=== PATIENT | female | born 1990 | race American Indian/Alaskan Native ===

== ENCOUNTER 2019-07-23 13:04 | Emergency (ER) | payer MEDICAID ==
[2019-07-23] MEDS ORDERED: ACETAMINOPHEN 325 MG TAB PO ONE (14:35)
--- NOTE | 2019-07-23 14:37 | Emergency Department Report ---
Chief Complaint: Vaginal Bleeding Stated Complaint: POSS /STOMACH PAIN - HPI History of Present Illness: 29 y/o fem, , not sure of lmp, follows with [facility] or [facility] p/w lower abd cramping and vaginal bleeding no urinary symptoms belly soft benign exam labs ua, ultrasound ok to go to [facility] MSE screening note: Focused history and physical exam performed. Due to findings the following was ordered: ED Disposition for MSE Condition: Stable
[2019-07-23 14:38] VITALS: BP 111/48
--- NOTE | 2019-07-23 15:49 | Ultrasound Report ---
ULTRASOUND OBSTETRIC INDICATION: Vaginal bleeding. Estimated clinical gestational age of 4 weeks, 6 days. TECHNIQUE: Transabdominal and Transvaginal. COMPARISON: None available. FINDINGS: GESTATIONAL SAC: Not visualized. YOLK SAC: Not visualized. EMBRYO/FETUS: Not visualized. ADNEXA: No ectopic or other significant abnormality. FREE FLUID: None. ADDITIONAL FINDINGS: None. IMPRESSION: No sonographic evidence of an intrauterine or ectopic . Signer Name: Salvador Mcdaniel MD Signed: 07/23/2019 3:44 PM Workstation Name: [id number]
[2019-07-23 15:52] LABS: Basophils % (Auto) 0.8 % (0.0-1.8); Eosinophils # (Auto) 0.1 K/mm3 (0.0-0.4); Eosinophils % (Auto) 1.2 % (0.0-4.3); Hematocrit 37.7 % (30.3-42.9); Hemoglobin 12.6 gm/dl (10.1-14.3); Lymphocytes # (Auto) 2.2 K/mm3 (1.2-5.4); Lymphocytes % (Auto) 46.1 % (13.4-35.0); Mean Corpuscular HGB Conc 33 % (30-34); Mean Corpuscular Volume 87 fl (79-97); Monocytes # (Auto) 0.3 K/mm3 (0.0-0.8); Platelet Count 236 K/mm3 (140-440); Red Blood Count 4.32 M/mm3 (3.65-5.03); Red Cell Distribution Width 13.8 % (13.2-15.2)
[2019-07-23 15:58] LABS: Bilirubin,Urine NEG (Negative); Blood,Urine NEG (Negative); Color,Urine Straw (Yellow); Protein,Urine <15 mg/dL mg/dL (Negative); Urobilinogen,Urine < 2.0 mg/dL (<2.0)
== END 2019-07-23 22:02 | disposition left against medical advice (07) ==
LOC: ED 13:04
DX: R10.9 Unspecified abdominal pain (principal); Z53.21 Procedure and treatment not carried out due to patient leaving prior to being seen by health care provider
CPT/HCPCS: 36415; 76801; 76817; 81001; 84702; 85025; 86850; 86900; 86901

== ENCOUNTER 2019-09-12 00:05 | Emergency (ER) | payer MEDICAID ==
[2019-09-12 01:56] LABS: Bacteria,Urine 1+ /HPF (Negative); Bilirubin,Urine NEG (Negative); Blood,Urine NEG (Negative); Color,Urine Yellow (Yellow); Protein,Urine <15 mg/dL mg/dL (Negative); Urobilinogen,Urine < 2.0 mg/dL (<2.0)
[2019-09-12 02:00] LABS: HCG Qualitative,Urine Negative (Negative)
[2019-09-12 04:15] VITALS: BP 105/60
== END 2019-09-12 04:16 | disposition home or self-care (01) ==
LOC: ED 00:05
DX: R31.9 Hematuria, unspecified (principal); R30.0 Dysuria; R07.89 Other chest pain
CPT/HCPCS: 81001; 81025; 99283

== ENCOUNTER 2019-11-24 11:39 | Emergency (ER) | payer MEDICAID ==
[2019-11-24 12:26] LABS: Basophils % (Auto) 0.5 % (0.0-1.8); Eosinophils # (Auto) 0.1 K/mm3 (0.0-0.4); Eosinophils % (Auto) 0.9 % (0.0-4.3); Hematocrit 36.4 % (30.3-42.9); Hemoglobin 12.2 gm/dl (10.1-14.3); Lymphocytes # (Auto) 1.3 K/mm3 (1.2-5.4); Mean Corpuscular HGB Conc 34 % (30-34); Mean Corpuscular Volume 87 fl (79-97); Monocytes # (Auto) 0.4 K/mm3 (0.0-0.8); Monocytes % (Auto) 6.2 % (0.0-7.3); Platelet Count 244 K/mm3 (140-440); Red Blood Count 4.21 M/mm3 (3.65-5.03); Red Cell Distribution Width 12.8 % (13.2-15.2)
[2019-11-24] MEDS ORDERED: SODIUM CHLORIDE 0.9% 1000 ML 1,000 ML IV ONE (12:30)
[2019-11-24 13:04] LABS: BUN/Creatinine Ratio 10; Blood Urea Nitrogen 7 mg/dL (7-17); Calcium 9.5 mg/dL (8.4-10.2); Hemolysis Index 4
[2019-11-24 13:13] LABS: Bilirubin,Urine NEG (Negative); Blood,Urine SM (Negative); Color,Urine Yellow (Yellow); Mucus,Urine FEW /HPF; Protein,Urine <15 mg/dL mg/dL (Negative)
--- NOTE | 2019-11-24 13:53 | Emergency Department Report ---
ED Female HPI - General Chief complaint: Urogenital-Female Stated complaint: DIZZY Time Seen by Provider: 11/24/19 12:28 Source: patient Mode of arrival: Ambulatory Limitations: No Limitations - History of Present Illness Initial comments: 29-year-old -Monegasque female G8, presents to the emergency department complaining of 1 to 2-day history of brown vaginal discharge development while being 8 weeks . States she has mild weakness with some nausea but no significant pain. No dysuria, no fever, chills, sweats no palpitations no abdominal trauma. MD Complaint: vaginal discharge Location: suprapubic Severity: mild, moderate Quality: dull Consistency: constant Improves with: none Worsens with: none Are you Now?: Yes Associated Symptoms: vaginal discharge - Related Data Sexually active: Yes Previous Rx's Medication Instructions Recorded Last Taken Type Brompheniram/Phenylephrine/Dm 10 ml PO Q6HR #240 solution 09/12/19 Unknown Rx [Children's Cold-Cough Elixir] Ciprofloxacin HCl [Ciprofloxacin 500 mg PO Q12HR #10 tab 09/12/19 Unknown Rx TAB] metroNIDAZOLE [Flagyl] 500 mg PO Q12HR #14 tab 11/24/19 Unknown Rx Allergies Allergy/AdvReac Type Severity Reaction Status Date / Time amoxicillin Allergy Shortness Verified 11/24/19 11:43 of Breath Penicillins Allergy Shortness Verified 11/24/19 11:43 of Breath ED Review of Systems ROS: Stated complaint: DIZZY Other details as noted in HPI Comment: All other systems reviewed and negative ED Past Medical Hx - Past Medical History Previous Medical History?: No - Surgical History Past Surgical History?: Yes Additional Surgical History: TONSILS - Social History Smoking Status: Never Smoker Substance Use Type: None - Medications Home Medications: Home Medications Medication Instructions Recorded Confirmed Last Taken Type Brompheniram/Phenylephrine/Dm 10 ml PO Q6HR #240 solution 09/12/19 Unknown Rx [Children's Cold-Cough Elixir] Ciprofloxacin HCl [Ciprofloxacin 500 mg PO Q12HR #10 tab 09/12/19 Unknown Rx TAB] metroNIDAZOLE [Flagyl] 500 mg PO Q12HR #14 tab 11/24/19 Unknown Rx ED Physical Exam - General Limitations: No Limitations General appearance: alert, in no apparent distress - Head Head exam: Present: atraumatic, normocephalic - Eye Eye exam: Present: normal appearance, PERRL, EOMI Pupils: Present: normal accommodation - ENT ENT exam: Present: normal exam, mucous membranes moist - Neck Neck exam: Present: normal inspection - Respiratory Respiratory exam: Present: normal lung sounds bilaterally. Absent: respiratory distress - Cardiovascular Cardiovascular Exam: Present: regular rate, normal rhythm. Absent: systolic murmur, diastolic murmur, rubs, gallop - GI/Abdominal GI/Abdominal exam: Present: soft, normal bowel sounds - External exam: Present: normal external exam Speculum exam: Present: vaginal discharge Bi-manual exam: Present: normal bi-manual exam, other (Nurse currency counter present) - Extremities Exam Extremities exam: Present: normal inspection - Back Exam Back exam: Present: normal inspection - Neurological Exam Neurological exam: Present: alert, oriented X3 - Psychiatric Psychiatric exam: Present: normal affect, normal mood - Skin Skin exam: Present: warm, dry, intact, normal color. Absent: rash ED Course Vital Signs 11/24/19 11/24/19 11/24/19 11:49 17:48 18:00 Temperature 98.2 F Pulse Rate 78 71 Respiratory 17 18 16 Rate Blood Pressure 101/67 Blood Pressure 81/45 [Right] O2 Sat by Pulse 100 100 Oximetry 11/24/19 11/24/19 19:11 20:09 Temperature Pulse Rate 71 79 Respiratory 16 Rate Blood Pressure Blood Pressure 89/57 98/66 [Right] O2 Sat by Pulse 100 Oximetry ED Medical Decision Making - Lab Data Result diagrams: 11/24/19 12:15 11/24/19 12:15 Critical care attestation.: If time is entered above; I have spent that time in minutes in the direct care of this critically ill patient, excluding procedure time. ED Disposition Clinical Impression: Bacterial vaginal infection Disposition: DC-01 TO HOME OR SELFCARE Is pt being admited?: No Does the pt Need Aspirin: No Condition: Stable Instructions: Bacterial Vaginosis (ED) Prescriptions: metroNIDAZOLE [Flagyl] 500 mg PO Q12HR #14 tab Referrals: PRIMARY CARE, [Primary Care Provider] - 3-5 Days Forms: STI Treatment and Prevention
--- NOTE | 2019-11-24 17:09 | Ultrasound Report ---
OB ultrasound FINDINGS: Single fetus is identified with heart rate of 178 bpm. Appropriate measurements revea l an MA of 12 weeks 2 days for an EDC of 06/05/2020. This correlates with the clinical dates. Left ov nilson is normal. Right ovary contains an 11 x 8 x 8 mm cyst probably a corpus luteum cyst. There is no free fluid or subchorionic hemorrhage. Placenta is posterior. No abnormality seen. Signer Name: Carlyle Ha MD Signed: 11/24/2019 5:05 PM Workstation Name: [id number]
[2019-11-24] MEDS: SODIUM CHLORIDE 0.9% 1000 ML 1,000 ML IV SCH ×2 (17:59→18:00)
[2019-11-24 20:09] VITALS: BP 98/66
== END 2019-11-24 20:09 | disposition home or self-care (01) ==
LOC: ED 11:39
DX: O26.891 Other specified pregnancy related conditions, first trimester (principal); N89.8 Other specified noninflammatory disorders of vagina; R11.0 Nausea; Z3A.08 8 weeks gestation of pregnancy; Z98.890 Other specified postprocedural states; Z79.899 Other long term (current) drug therapy; Z88.0 Allergy status to penicillin; Z88.1 Allergy status to other antibiotic agents
CPT/HCPCS: 36415; 76801; 80048; 81001; 84702; 85025; 86900; 86901; 87210; 87591; 99284; J7030

== ENCOUNTER 2020-05-01 21:01 | Observation (INO) | payer MEDICAID ==
[2020-05-01] MEDS ORDERED: LACTATED RINGERS 1,000 ML IV ONE (21:51)
[2020-05-01 22:37] LABS: Bacteria,Urine 1+ /HPF (Negative); Bilirubin,Urine NEG (Negative); Blood,Urine NEG (Negative); Color,Urine Straw (Yellow); Protein,Urine <15 mg/dL mg/dL (Negative); Urobilinogen,Urine < 2.0 mg/dL (<2.0); WBC,Urine < 1.0 /HPF (0.0-6.0)
[2020-05-01 22:41] LABS: Amphetamine Screen,Urine PRESUMPTIVE NEGATIVE; Benzodiazepines Screen,Urine PRESUMPTIVE NEGATIVE; Cannabinoid Screen,Urine PRESUMPTIVE NEGATIVE; Cocaine Screen,Urine PRESUMPTIVE NEGATIVE; Methadone Screen,Urine PRESUMPTIVE NEGATIVE; Opiate Screen,Urine PRESUMPTIVE NEGATIVE
[2020-05-01] MEDS ORDERED: MORPHINE 4 MG/1 ML INJ IM ONE (23:10)
[2020-05-01] MEDS ORDERED: diphenhydrAMINE 50 MG/ML VIAL IV ONE (23:10)
[2020-05-01] MEDS ORDERED: LACTATED RINGERS 1,000 ML IV SCH (23:45)
[2020-05-01 23:55] LABS: Basophils % (Auto) 0.3 % (0.0-1.8); Eosinophils # (Auto) 0.1 K/mm3 (0.0-0.4); Eosinophils % (Auto) 0.7 % (0.0-4.3); Hematocrit 33.6 % (30.3-42.9); Hemoglobin 11.4 gm/dl (10.1-14.3); Lymphocytes # (Auto) 1.6 K/mm3 (1.2-5.4); Lymphocytes % (Auto) 18.9 % (13.4-35.0); Mean Corpuscular HGB Conc 34 % (30-34); Mean Corpuscular Volume 90 fl (79-97); Monocytes # (Auto) 0.7 K/mm3 (0.0-0.8); Monocytes % (Auto) 8.4 % (0.0-7.3); Platelet Count 204 K/mm3 (140-440); Red Blood Count 3.73 M/mm3 (3.65-5.03); Red Cell Distribution Width 13.5 % (13.2-15.2)
[2020-05-02] MEDS: BETAMET ACET/BETAMET NA PH 6 MG/ML INJ 5 ML MDV IM SCH
[2020-05-02] MEDS ORDERED: MORPHINE 4 MG/1 ML INJ IM ONE (02:40)
--- NOTE | 2020-05-02 02:47 | Ultrasound Report ---
ULTRASOUND OBSTETRIC LIMITED INDICATION / CLINICAL INFORMATION: VAGINAL BLEEDING. Clinical Gestational Age (GA) in weeks, days: 34 weeks 4 days TECHNIQUE: Transabdominal. COMPARISON: None available. FINDINGS: HEART RATE (beats per minute): 143 AMNIOTIC FLUID INDEX (cm) = not measured (normal = 7-24 cm) PRESENTATION: Cephalic. ADDITIONAL FINDINGS: Placenta is located within the fundus, grade 0.No placental abruption identified . Incidental note is made of a placental cantu. IMPRESSION: 1. Single viable IUP in a cephalic presentation. 2. No evidence of abruption. Signer Name: Mariama Nassar MD Signed: 05/02/2020 2:42 AM Workstation Name: [id number]
--- NOTE | 2020-05-02 13:36 | History and Physical Report ---
History of Present Illness Date of examination: 05/02/20 Date of admission: 05/01/20 23:10 Chief complaint: contractions History of present illness: 30 yo at 34w3d by reported benign PNC at [facility] c/b grand multiparity, hx PTB x 3 (at 34, 35, 36 weeks), hx PIH in previous pregnancies presenting with pelvic pain/contractions x 2 days. Hx of vaginal spotting after cervical check, but not spontaneously. Also reports persistent contractions every 3-5 minutes. +FH. Denies further vaginal bleeding or LOF. Denies PIH symptoms. GBS unknown Still obtaining records Past History Past Medical History: asthma, other (bronchitis) Past Surgical History: tonsillectomy Family/Genetic History: none Social history: no significant social history - Obstetrical History : 8 Para: 6 Hx # Term Pregnancies: 2 Number of Pregnancies: 3 Spontaneous Abortions: 2 Number of Living Children: 5 Medications and Allergies Allergies Allergy/AdvReac Type Severity Reaction Status Date / Time amoxicillin Allergy Shortness Verified 11/24/19 11:43 of Breath Penicillins Allergy Shortness Verified 11/24/19 11:43 of Breath Home Medications Medication Instructions Recorded Confirmed Last Taken Type Brompheniram/Phenylephrine/Dm 10 ml PO Q6HR #240 solution 09/12/19 Unknown Rx [Children's Cold-Cough Elixir] Ciprofloxacin HCl [Ciprofloxacin 500 mg PO Q12HR #10 tab 09/12/19 Unknown Rx TAB] metroNIDAZOLE [Flagyl] 500 mg PO Q12HR #14 tab 11/24/19 Unknown Rx Active Meds: Active Medications Betamethasone Acet/Betameth SodPhos (Celestone Soluspan) 12 mg IM Q24H JOSEF Stop: 05/02/20 23:31 Last Admin: 05/02/20 00:00 Dose: 12 mg Documented by: Lactated Ringer's (Lactated Ringers) 1,000 mls @ 125 mls/hr IV DIRECT JOSEF Review of Systems All systems: negative (expect HPI) - Vital Signs Vital signs: Vital Signs Pulse BP 90 95/65 05/01/20 21:32 05/01/20 21:32 Temp Pulse Resp BP Pulse Ox 97.7 F 90 20 105/65 99 05/02/20 08:00 05/02/20 13:11 05/02/20 08:00 05/02/20 09:15 05/02/20 13:11 - Obstetrical FHR: category 1 Uterine Contraction Monitor Mode: External Cervical Dilatation: 1 Cervical Effacement Percentage: 40 station: -2 Uterine Contraction Pattern: Irregular Uterine Tone Measurement Phase: Resting Uterine Contraction Intensity: Moderate Results Result Diagrams: 05/01/20 23:00 Abnormal lab results 05/01/20 Range/Units 23:00 [place] % (Auto) 8.4 H (0.0-7.3) % Seg Neutrophils % 71.7 H (40.0-70.0) % All other labs normal. Assessment and Plan - Patient Problems (1) contractions Current Visit: Yes Status: Acute Plan to address problem: --Given hx of delivery x 3 and high risk of delivery, will admit for atleast 24H. At least for 2 doses of steriods for lung maturity. --Nifedipine 10mg q6hr for contractions --Mag started --IV Abx --BMS x 2. Anticipate discharge after 2nd dose of steriods if no further indication for admission
[2020-05-02] MEDS ORDERED: MAGNESIUM SULFATE 4 GM/100 ML BAG IV ONE (13:41)
[2020-05-02] MEDS ORDERED: MAGNESIUM SULFATE 40GM/1000ML 40 GM/1,000 ML BAG IV SCH (14:00)
[2020-05-02] MEDS: NIFEdipine*For Tocolysis only* 10 MG CAPSULE PO SCH ×2 (16:53→23:13)
[2020-05-03] MEDS: BETAMET ACET/BETAMET NA PH 6 MG/ML INJ 5 ML MDV IM SCH (00:08)
[2020-05-03] MEDS ORDERED: ACETAMINOPHEN 325 MG TAB PO PRN (02:05)
[2020-05-03] MEDS: NIFEdipine*For Tocolysis only* 10 MG CAPSULE PO SCH (05:11)
--- NOTE | 2020-05-03 06:58 | Event Note ---
Date: 05/03/20 contractions have resolved. Procardia helped. Pt got second steroid dose last night. FHT- reactive, good LTV. D/c home with procardia.
[2020-05-03 09:17] VITALS: BP 92/61
== END 2020-05-03 09:31 | disposition home or self-care (01) ==
LOC: TRG 21:01 → APU 21:02 → LD 23:10 → TRG 23:10 → LD 05-02 03:00
PROVIDERS: ADMIT Obstetrics & Gynecology; ATTEND Obstetrics & Gynecology
DX: O62.9 Abnormality of forces of labor, unspecified (principal); O26.893 Other specified pregnancy related conditions, third trimester; J45.909 Unspecified asthma, uncomplicated; Z3A.34 34 weeks gestation of pregnancy; Z90.49 Acquired absence of other specified parts of digestive tract; Z79.899 Other long term (current) drug therapy
CPT/HCPCS: 36415; 59025; 76815; 80307; 81001; 83735; 85025; 86592; 86850; 86900; 86901; 96361; 96365; 96366; 96368; 96372; 96375; G0378; J0690; J0702; J1200; J2270; J3475; J7120; 96360

== ENCOUNTER 2020-06-02 21:12 | Inpatient (IN) | payer MEDICAID ==
--- NOTE | 2020-06-03 00:56 | Ultrasound Report ---
LIMITED OBSTETRIC ULTRASOUND WITH BIOPHYSICAL PROFILE HISTORY: well-being COMPARISON: Obstetric ultrasound 05/02/2020 TECHNIQUE: Obstetric sonogram performed for biophysical profile assessment. FINDINGS: Gestation: Single intrauterine Presentation: Currentlycephalic Amniotic Fluid Index: 6.9 cm ANATOMY: Detailed anatomic survey was not requested. heart rate is 135 beats per minute. BIOPHYSICAL PROFILE: Movement: 2 Tone: 2 Breathin Amniotic Fluid: 2 Total: 8 out of 8 IMPRESSION 1. Biophysical Profile 8/8. 2. Amniotic fluid index 6.9 cm. Signer Name: Fabiana Kaplan MD Signed: 06/03/2020 12:52 AM Workstation Name: [id number]
[2020-06-03] MEDS ORDERED: MINERAL OIL 30 ML ORAL LIQD PO PRN (01:24)
[2020-06-03] MEDS ORDERED: fentaNYL 100 MCG/2 ML INJ IV PRN (01:24)
[2020-06-03] MEDS ORDERED: BUTORPHANOL 2 MG/1 ML INJ IV PRN ×2 (01:24)
[2020-06-03] MEDS ORDERED: LIDOCAINE (2%) 20 MG/1 ML VIAL 20 ML MDV INFILTRATI ONE ×2 (01:24→03:57)
[2020-06-03] MEDS ORDERED: TERBUTALINE 1 MG/1 ML INJ SUB-Q PRN (01:24)
[2020-06-03] MEDS ORDERED: ePHEDrine SULFATE 50 MG/1 ML INJ IV PRN (01:24)
[2020-06-03] MEDS ORDERED: LACTATED RINGERS 1,000 ML IV SCH (01:30)
[2020-06-03] MEDS ORDERED: CLINDAMYCIN 600 MG/50 mL 600 MG/50 ML BAG IV SCH (02:00)
[2020-06-03] MEDS ORDERED: OXYTOCIN DRIP 30 UNITS/500 ML BAG IV SCH ×2 (02:00)
--- NOTE | 2020-06-03 02:14 | History and Physical Report ---
History of Present Illness Date of examination: 06/03/20 Date of admission: 06/03/20 Chief complaint: 30 y/o presents to [facility] OB triage with c/o uc times several hours. She denies VB or LOF, and admits to active FM. History of present illness: 30 y/o AA female presents to [facility] @ 39.1 wks with c/o uc x several hours. She denied VB or LOF. She states she initiated her pnc at [facility] location at 8wks 5 days. Pt was co managed by [facility] for a hx of PTD and an abn MSAFP for ONTD. Pt has a hx of pp depression (2011), asthma last attack was 09/10, PTD x3, LSIL with neg HPV on pap. Surgical and social hx is unremarkable. Family hx of DM, heart disease, and Ca. Pt's GBS is unknown. She was found to be in labor and was admitted to L&D for delivery. 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, other (LSIL with neg HPV) Family/Genetic History: diabetes, heart disease, cancer Social history: single, full code - Obstetrical History Expected Date of Delivery: 06/09/20 Actual Gestation: 39 Week(s) 1 Day(s) : 8 Para: 5 Hx # Term Pregnancies: 2 Number of Pregnancies: 3 Spontaneous Abortions: 0 Induced : 0 Number of Living Children: 5 Medications and Allergies Allergies Allergy/AdvReac Type Severity Reaction Status Date / Time amoxicillin Allergy Shortness Verified 11/24/19 11:43 of Breath Penicillins Allergy Shortness Verified 11/24/19 11:43 of Breath Home Medications Medication Instructions Recorded Confirmed Last Taken Type Colace CAP 1 tab PO DAILY 05/03/20 05/03/20 05/01/20 History Iron 1 tab PO BID 05/03/20 05/03/20 05/01/20 History NIFEdipine [Procardia] 10 mg PO Q6H PRN #30 capsule 05/03/20 Unknown Rx Vitamin 1 tab PO DAILY 05/03/20 05/03/20 05/01/20 History Active Meds: Active Medications Butorphanol Tartrate (Butorphanol 2 Mg/1 Ml Inj) 1 mg IV Q2H PRN PRN Reason: Pain, Moderate(4-6) LABOR PAIN Butorphanol Tartrate (Butorphanol 2 Mg/1 Ml Inj) 2 mg IV Q2H PRN PRN Reason: Pain , Severe (7-10) Last Admin: 06/03/20 01:57 Dose: 2 mg Documented by: Ephedrine Sulfate (Ephedrine Sulfate 50 Mg/1 Ml Inj) 10 mg IV Q2M PRN PRN Reason: Hypotension Fentanyl (Fentanyl 100 Mcg/2 Ml Inj) 100 mcg IV Q2H PRN PRN Reason: Pain,Severe (7-10) LABOR PAIN Oxytocin/Sodium Chloride (Pitocin/Ns 30 Unit/500ml) 30 units in 500 mls @ 2 mls/hr IV TITR JOSEF; Protocol Lactated Ringer's (Lactated Ringers) 1,000 mls @ 125 mls/hr IV DIRECT JOSEF Last Admin: 06/03/20 01:58 Dose: 125 mls/hr Documented by: Oxytocin/Sodium Chloride (Pitocin/Ns 30 Unit/500ml) 30 units in 500 mls @ 40 mls/hr IV TITR JOSEF; Protocol Clindamycin HCl (Cleocin 600 Mg/50 Ml) 600 mg in 50 mls @ 100 mls/hr IV Q8HR JOSEF; Protocol Mineral Oil (Mineral Oil 30 Ml Oral Liqd) 30 ml PO QHS PRN PRN Reason: Constipation Miscellaneous Medication (Iron) 1 tab PO BID [facility] Multivitamins/Iron/Calcium ( Xtm86-In Fumarate-Folic Acid Vit Tab) 1 each PO DAILY [facility] Terbutaline Sulfate (Terbutaline 1 Mg/1 Ml Inj) 0.25 mg SUB-Q ONCE PRN PRN Reason: Hyperstimulation/Hypertonicity Review of Systems All systems: negative Eyes: deferred Ears, nose, mouth and throat: deferred Breasts: normal Genitourinary: normal appearance, contractions Rectal Exam: deferred - Vital Signs Vital signs: Vital Signs Pulse BP Pulse Ox 90 118/73 100 06/02/20 21:44 06/02/20 21:44 06/02/20 21:44 Temp Pulse Resp BP Pulse Ox 98.3 F 81 18 118/73 98 06/02/20 21:49 06/02/20 23:29 06/02/20 21:49 06/02/20 21:49 06/02/20 23:29 - Physical Exam Breasts: Positive: normal Abdomen: Positive: normal appearance, soft, normal bowel sounds Vulva: both: normal Vagina: Positive: normal moisture Uterus: Positive: enlarged, normal contour, other (GRAVID) Adnexa: both: normal Anus/Rectum: Positive: normal perianal skin Extremities: Positive: normal - Obstetrical FHR: auscultation normal, category 1 Uterine Contraction Monitor Mode: External Cervical Dilatation: 4 Cervical Effacement Percentage: 90 station: -3 Uterine Contraction Frequency (min): Q3-5 Uterine Contraction Pattern: Regular Uterine Tone Measurement Phase: Resting Uterine Contraction Intensity: Moderate Results Result Diagrams: 06/03/20 01:25 All other labs normal. Assessment and Plan A:IUP@39.1 wks Hx PTD x3 Asthma, Hx pp depression LSIL on pap GBS unknown Abnormal MSAFP p: Admit to L&D Continuous monitoring Pain med/Epidural prn GBS prophylaxis Notify LEYDA Monitor for pp depression Anticipate - Patient Problems (1) (normal spontaneous vaginal delivery) Current Visit: Yes Status: Acute (2) Asthma Current Visit: Yes Status: Acute (3) History of depression Current Visit: Yes Status: Acute
[2020-06-03 02:36] LABS: Hematocrit 36.8 % (30.3-42.9); Mean Corpuscular HGB Conc 33 % (30-34); Mean Corpuscular Volume 92 fl (79-97); Platelet Count 201 K/mm3 (140-440); Red Blood Count 4.01 M/mm3 (3.65-5.03); Red Cell Distribution Width 13.6 % (13.2-15.2)
[2020-06-03] MEDS ORDERED: PROMETHAZINE 25 MG RECT SUPP PR PRN ×2 (02:49→03:32)
[2020-06-03] MEDS ORDERED: ONDANSETRON 4 MG/2 ML INJ IV PRN ×2 (02:49→03:32)
[2020-06-03] MEDS ORDERED: PROMETHAZINE 25 MG TAB PO PRN ×2 (02:49→03:32)
[2020-06-03] MEDS ORDERED: LANOLIN/ZINC/DIMETHICONE (LANSINOH) 7 GM TP PRN (02:49)
[2020-06-03] MEDS ORDERED: WITCH HAZEL/ GLYCERIN PAD TP PRN (02:49)
[2020-06-03] MEDS ORDERED: diphenhydrAMINE 25 MG CAP PO PRN (02:49)
[2020-06-03] MEDS ORDERED: MAGNESIUM HYDROXIDE (MOM) ORAL LIQD UDC PO PRN ×2 (02:49→03:32)
--- NOTE | 2020-06-03 03:47 | Procedure Note ---
OB Delivery Note - Delivery Date of Delivery: 06/03/20 Surgeon: BERNARD ANTHONY Multiple Drum Sander: BERNARD ANTHONY Estimated blood loss: 100cc - Vaginal Delivery presentation: vertex Delivery position: OA Delivery induction: none Delivery augmentation: pitocin Delivery monitor: external FHT, external uterine Route of delivery: Delivery placenta: spontaneous Delivery cord: nuchal cord, 3 umbilical vessels Episiotomy: none Delivery laceration: none Anesthesia: intravenous Delivery comments: Called to for delivery. SVE 10/100%/+1 and pt was pushing. of a viable female in OA position. Head delivered with ease. Tight nuchal cord X 1 was clamped x2 and cut while head was still on the perineum. Infant's shoulders were delivered spontaneously. was placed on moms chest for skin to skin bonding while LEYDA nurse stimulated and dried baby then infant was taken to the warmer for an assess. 8/9. Spontaneous delivery of an intact placenta with CVX3. FF@ U2 with fundal massage and IV Pitocin. Exploration of tears revealed none. EBL 100cc FW 6lbs 7 oz. Mom and baby stable and left in the care of the nurse. - A at 1 minute: 8 at 5 minutes: 9 (FW 6 LBS 7 OZ) Gender: Female
[2020-06-03] MEDS: IBUPROFEN 600 MG TAB PO SCH ×3 (07:12→17:36)
[2020-06-03] MEDS: FERROUS SULFATE 325 MG TAB PO SCH (09:50)
[2020-06-03] MEDS ORDERED: PRENATAL VIT27-FE FUMARATE-FOLIC ACID VIT TAB PO SCH (10:00)
[2020-06-03 20:46] LABS: Hematocrit 33.6 % (30.3-42.9); Hemoglobin 11.4 gm/dl (10.1-14.3)
[2020-06-04] MEDS: FERROUS SULFATE 325 MG TAB PO SCH ×2 (05:34→12:18)
[2020-06-04] MEDS: IBUPROFEN 600 MG TAB PO SCH ×2 (05:34→12:17)
--- NOTE | 2020-06-04 10:47 | Progress Note ---
Assessment and Plan A: day 1 S/P . P: Continue current management. Plan discharge home when baby is able to go, either this evening or tomorrow. Subjective - Subjective Date of service: 06/04/20 Principal diagnosis: day 1 S/P Patient reports: appetite normal, voiding normally, pain well controlled, flatus, ambulating normally, no dizzy ambulation, no nauseated : doing well Objective - Vital Signs Latest vital signs: Vital Signs Temp Pulse Resp BP Pulse Ox 06/04/20 08:14 98.1 F 85 20 100/69 96 06/04/20 02:19 98.0 F 89 18 98/54 96 06/03/20 17:29 99.0 F 93 H 18 97/58 96 06/03/20 12:45 98.0 F 94 H 19 102/64 97 Intake and Output 06/03/20 06/04/20 06/04/20 23:59 07:59 15:59 Intake Total 960 480 240 Output Total 600 Balance 360 480 240 Intake: Oral 600 480 240 Intake, Free Water 360 Output: Urine 600 Void 600 Other: Total, Intake Amount 240 240 240 Total, Output Amount 600 # Voids Void 1 1 - Exam Cardiovascular: Present: Regular rate Lungs: Present: Clear to auscultation Abdomen: Present: normal appearance, soft. Absent: distention, tenderness, guarding, rigidity Uterus: Present: normal, firm, fundal height below umbilicus. Absent: bogginess, tenderness Extremities: Present: normal. Absent: tenderness, edema
[2020-06-04 13:57] VITALS: BP 106/65
--- NOTE | 2020-06-04 15:23 | Event Note ---
Date: 06/04/20 Was notified by patient's nurse that patient signed out AMA.
--- NOTE | 2020-06-04 15:24 | Discharge Summary ---
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 Primary care physician: MICHAEL CASTELLANOS MD Hospitalization Disposition: DC-07 LEFT AGAINST MED ADVICE Plan - Provider Discharge Summary Additional instructions: [] Smoking cessation referral if applicable(refer to patient education folder for contact #) [] Refer to [facility]'s [facility] Booklet Call your doctor immediately for: * Fever > 100.5 * Heavy vaginal bleeding ( >1 pad per hour) * Severe persistent headache * Shortness of breath * Reddened, hot, painful area to leg or breast * Drainage or odor from incision. * Keep incision clean and dry at all times and follow doctor's instructions regarding bathing/showering - Follow up plan Follow up: MICHAEL CASTELLANOS MD [Primary Care Provider] - 6 Weeks Forms: [facility] Discharge Summary
== END 2020-06-04 15:15 | disposition left against medical advice (07) | DRG 775 ==
LOC: TRG 21:12 → APU 21:13 → TRG 06-03 01:24 → OBSVTOIN 06-03 01:24 → LD 06-03 01:24 → OB 06-03 05:51
PROVIDERS: ADMIT Obstetrics & Gynecology; ATTEND Obstetrics & Gynecology
PROC: 10E0XZZ Delivery of Products of Conception, External Approach (ICD-10-PCS; principal; 2020-06-03)
DX: O69.81X0 Labor and delivery complicated by cord around neck, without compression, not applicable or unspecified (principal); O99.52 Diseases of the respiratory system complicating childbirth; J45.909 Unspecified asthma, uncomplicated; Z37.0 Single live birth; Z3A.39 39 weeks gestation of pregnancy; Z88.1 Allergy status to other antibiotic agents; Z88.0 Allergy status to penicillin; O99.344 Other mental disorders complicating childbirth; F32.9 Major depressive disorder, single episode, unspecified; Z20.828 Contact with and (suspected) exposure to other viral communicable diseases
CPT/HCPCS: 36415; 76815; 76819; 85014; 85018; 85027; 86850; 86900; 86901; G0378; J0595; J7120; U0003

== ENCOUNTER 2020-10-25 01:27 | Emergency (ER) | payer MEDICAID ==
[2020-10-25 02:39] VITALS: BP 120/77
[2020-10-25] MEDS ORDERED: IBUPROFEN 600 MG TAB PO ONE (04:54)
[2020-10-25] MEDS ORDERED: ACETAMINOPHEN W/CODEINE 300-30 MG TAB PO ONE (04:56)
--- NOTE | 2020-10-25 04:58 | Emergency Department Report ---
ED ENT HPI - General Chief complaint: Dental/Oral Stated complaint: JAW SWOLLEN/ MOUTH ABCESS Time Seen by Provider: 10/25/20 04:52 Source: patient Mode of arrival: Ambulatory Limitations: No Limitations - History of Present Illness Initial comments: 30-year-old -Surinames[place] female presents to the emergency room complaining of right lower jaw dental pain for the last couple days. Patient states she has been taking Tylenol without much relief. Patient reports he tried Orajel no relief. Patient states she knows she has a bad tooth. Patient states she does have an appointment with a dentist but is not until mid October. Patient denies any trauma to her face. MD complaint: tooth pain Onset/Timin -: days(s) Location: tooth # Severity: severe Severity scale (0 -10): 9 Quality: stabbing, aching, sharp Consistency: constant Improves with: none Worsens with: eating Context- Dental: history of dental caries - Related Data Home Medications Medication Instructions Recorded Confirmed Last Taken Colace CAP 1 tab PO DAILY 05/03/20 05/03/20 05/01/20 Iron 1 tab PO BID 05/03/20 05/03/20 05/01/20 Vitamin 1 tab PO DAILY 05/03/20 05/03/20 05/01/20 Previous Rx's Medication Instructions Recorded Last Taken Type NIFEdipine [Procardia] 10 mg PO Q6H PRN #30 capsule 05/03/20 Unknown Rx Acetaminophen/Codeine [Tylenol 1 tab PO Q4HR PRN #12 tablet 10/25/20 Unknown Rx /Codeine # 3 tab] Clindamycin [Clindamycin CAP] 300 mg PO Q8H 10 Days #30 cap 10/25/20 Unknown Rx Ibuprofen [Motrin 600 MG tab] 600 mg PO Q8H PRN #30 tablet 10/25/20 Unknown Rx Allergies Allergy/AdvReac Type Severity Reaction Status Date / Time amoxicillin Allergy Shortness Verified 10/25/20 02:34 of Breath Penicillins Allergy Shortness Verified 10/25/20 02:34 of Breath ED Dental HPI - General Chief complaint: Dental/Oral Stated complaint: JAW SWOLLEN/ MOUTH ABCESS Time Seen by Provider: 10/25/20 04:52 Source: patient Mode of arrival: Ambulatory Limitations: No Limitations - Related Data Home Medications Medication Instructions Recorded Confirmed Last Taken Colace CAP 1 tab PO DAILY 05/03/20 05/03/20 05/01/20 Iron 1 tab PO BID 05/03/20 05/03/20 05/01/20 Vitamin 1 tab PO DAILY 05/03/20 05/03/20 05/01/20 Previous Rx's Medication Instructions Recorded Last Taken Type NIFEdipine [Procardia] 10 mg PO Q6H PRN #30 capsule 05/03/20 Unknown Rx Acetaminophen/Codeine [Tylenol 1 tab PO Q4HR PRN #12 tablet 10/25/20 Unknown Rx /Codeine # 3 tab] Clindamycin [Clindamycin CAP] 300 mg PO Q8H 10 Days #30 cap 10/25/20 Unknown Rx Ibuprofen [Motrin 600 MG tab] 600 mg PO Q8H PRN #30 tablet 10/25/20 Unknown Rx Allergies Allergy/AdvReac Type Severity Reaction Status Date / Time amoxicillin Allergy Shortness Verified 10/25/20 02:34 of Breath Penicillins Allergy Shortness Verified 10/25/20 02:34 of Breath ED Review of Systems ROS: Stated complaint: JAW SWOLLEN/ MOUTH ABCESS Other details as noted in HPI Comment: All other systems reviewed and negative ED Past Medical Hx - Past Medical History Hx Hypertension: No Hx Diabetes: No Hx Deep Vein Thrombosis: No Hx Renal Disease: No Hx Sickle Cell Disease: No Hx Seizures: No Hx Asthma: Yes (last attack 08/2019) - Surgical History Additional Surgical History: TONSILS - Social History Smoking Status: Never Smoker Substance Use Type: None - Medications Home Medications: Home Medications Medication Instructions Recorded Confirmed Last Taken Type Colace CAP 1 tab PO DAILY 05/03/20 05/03/20 05/01/20 History Iron 1 tab PO BID 05/03/20 05/03/20 05/01/20 History NIFEdipine [Procardia] 10 mg PO Q6H PRN #30 capsule 05/03/20 Unknown Rx Vitamin 1 tab PO DAILY 05/03/20 05/03/20 05/01/20 History Acetaminophen/Codeine [Tylenol 1 tab PO Q4HR PRN #12 tablet 10/25/20 Unknown Rx /Codeine # 3 tab] Clindamycin [Clindamycin CAP] 300 mg PO Q8H 10 Days #30 cap 10/25/20 Unknown Rx Ibuprofen [Motrin 600 MG tab] 600 mg PO Q8H PRN #30 tablet 10/25/20 Unknown Rx ED Physical Exam - General Limitations: No Limitations General appearance: alert, in no apparent distress - Head Head exam: Present: atraumatic, normocephalic - Eye Eye exam: Present: normal appearance - Expanded ENT Exam Expanded Teeth exam: Present: dental tenderness #, gingival enlargement - Neck Neck exam: Present: normal inspection - Respiratory Respiratory exam: Absent: accessory muscle use - Cardiovascular Cardiovascular Exam: Present: regular rate, normal rhythm. Absent: systolic murmur, diastolic murmur, rubs, gallop - Back Exam Back exam: Present: full ROM - Neurological Exam Neurological exam: Present: alert, oriented X3, normal gait - Psychiatric Psychiatric exam: Present: normal affect, normal mood - Skin Skin exam: Present: warm, dry, intact, normal color. Absent: rash ED Course Vital Signs 10/25/20 02:33 Temperature 98.7 F Pulse Rate 70 Respiratory 16 Rate Blood Pressure 120/77 O2 Sat by Pulse 100 Oximetry ED Medical Decision Making - Medical Decision Making 30-year-old -Surinames[place] female presents to the emergency room complaining of right lower jaw dental pain for the last couple days. Patient states she has been taking Tylenol without much relief. Patient reports he tried Orajel no relief. Patient states she knows she has a bad tooth. Patient states she does have an appointment with a dentist but is not until mid October. Patient denies any trauma to her face. Critical care attestation.: If time is entered above; I have spent that time in minutes in the direct care of this critically ill patient, excluding procedure time. ED Disposition Clinical Impression: Dental abscess Disposition: DC- TO HOME OR SELFCARE Is pt being admited?: No Does the pt Need Aspirin: No Condition: Stable Instructions: Dental Abscess, [id number] Additional Instructions: Please complete antibiotics as prescribed take pain medication as needed. Do not operate heavy machinery while taking Tylenol 3. Prescriptions: Clindamycin [Clindamycin CAP] 300 mg PO Q8H 10 Days #30 cap Ibuprofen [Motrin 600 MG tab] 600 mg PO Q8H PRN #30 tablet PRN Reason: Pain Acetaminophen/Codeine [Tylenol /Codeine # 3 tab] 1 tab PO Q4HR PRN #12 tablet PRN Reason: Pain Referrals: [facility] [Other] - 3-5 Days [facility] [Outside] - 3-5 Days [facility] [Outside] - 3-5 Days [facility] [Provider Group] - 3-5 Days Forms: Work/School Release Form(ED)
== END 2020-10-25 05:45 | disposition home or self-care (01) ==
LOC: ED 01:27
DX: K04.7 Periapical abscess without sinus (principal); J45.909 Unspecified asthma, uncomplicated; Z79.899 Other long term (current) drug therapy; Z88.0 Allergy status to penicillin; Z88.1 Allergy status to other antibiotic agents
CPT/HCPCS: 99282

== ENCOUNTER 2020-11-07 22:55 | Emergency (ER) | payer MEDICAID ==
[2020-11-07 23:03] VITALS: BP 137/81
[2020-11-08] MEDS ORDERED: IBUPROFEN 600 MG TAB PO ONE (00:49)
[2020-11-08] MEDS ORDERED: BUTALB/ACETAMINOPHEN/CAFFEINE TAB PO ONE (00:49)
[2020-11-08] MEDS ORDERED: predniSONE 50 MG TAB PO ONE (00:50)
[2020-11-08] MEDS ORDERED: FAMOTIDINE 20 MG TAB PO ONE (00:51)
[2020-11-08] MEDS ORDERED: ONDANSETRON 4 MG ODT TAB PO ONE (00:51)
--- NOTE | 2020-11-08 00:54 | Emergency Department Report ---
- General Chief Complaint: Dyspnea/Respdistress Stated Complaint: BODY ACHES;HEADACHE;CHEST PAIN Source: patient Mode of arrival: Ambulatory Limitations: No Limitations - History of Present Illness Initial Comments: Patient is a 30-year-old -[place] female with no past medical history presents to the ED with complaint of acute onset persistent severe frontal sinus pressure and headache, nasal and sinus congestion and mild dry cough with diffuse body aches and pains for the last 12 hours. Patient states that her 5-month-old child has had similar symptoms. Patient states that she has not been able to eat anything because of lack of appetite and generalized fatigue. Patient states that the cough and the frontal sinus pressure have worsened in the last 8 hours. Patient states that despite taking [id number] medications for pain, the headache has been persistent and worsening. Patient denies fever, nausea, vomiting, diarrhea, dysuria, urinary frequency and urgency, cough, chest pain, shortness of breath, abdominal pain or sore throat. MD Complaint: cough, rhinorrhea, nasal congestion, sinus pain, other (Frontal headache) -: Sudden, hour(s) (12) Severity: severe Severity scale (0 -10): 8 Quality: sharp, aching Consistency: constant Improves With: nothing Worsens With: nothing Context: sick contacts Associated Symptoms: denies other symptoms, myalgias, headache, rhinorrhea, nasal congestion, cough. denies: fever, chills, diaphoresis, sore throat, stiff neck, shortness of breath, abdominal pain, nausea, vomiting, diarrhea, dysuria, rash, confusion, weight loss, epistaxis, hoarseness, other Treatments Prior to Arrival: none - Related Data Home Medications Medication Instructions Recorded Confirmed Last Taken Colace CAP 1 tab PO DAILY 05/03/20 05/03/20 05/01/20 Iron 1 tab PO BID 05/03/20 05/03/20 05/01/20 Vitamin 1 tab PO DAILY 05/03/20 05/03/20 05/01/20 Previous Rx's Medication Instructions Recorded Last Taken Type NIFEdipine [Procardia] 10 mg PO Q6H PRN #30 capsule 05/03/20 Unknown Rx Acetaminophen/Codeine [Tylenol 1 tab PO Q4HR PRN #12 tablet 10/25/20 Unknown Rx /Codeine # 3 tab] Clindamycin [Clindamycin CAP] 300 mg PO Q8H 10 Days #30 cap 10/25/20 Unknown Rx Ibuprofen [Motrin 600 MG tab] 600 mg PO Q8H PRN #30 tablet 10/25/20 Unknown Rx Azithromycin [Zithromax Z-JH] 250 mg PO DAILY #6 tablet 11/08/20 Unknown Rx Benzonatate [Tessalon Perles] 100 mg PO Q8HR #30 capsule 11/08/20 Unknown Rx Cetirizine HCl [Zyrtec 10mg tab] 10 mg PO DAILY #30 tablet 11/08/20 Unknown Rx Fluticasone [Flonase] 1 spray NS QDAY #1 bottle 11/08/20 Unknown Rx Ibuprofen [Motrin] 800 mg PO Q8HR PRN #30 tablet 11/08/20 Unknown Rx Allergies Allergy/AdvReac Type Severity Reaction Status Date / Time amoxicillin Allergy Shortness Verified 10/25/20 02:34 of Breath Penicillins Allergy Shortness Verified 10/25/20 02:34 of Breath ED Review of Systems ROS: Stated complaint: BODY ACHES;HEADACHE;CHEST PAIN Other details as noted in HPI Constitutional: denies: chills, fever Eyes: denies: eye pain, eye discharge, vision change ENT: congestion, other (Frontal and maxillary sinus pressure). denies: ear pain, throat pain Respiratory: cough. denies: shortness of breath, wheezing Cardiovascular: denies: chest pain, palpitations Endocrine: no symptoms reported Gastrointestinal: nausea. denies: abdominal pain, vomiting, diarrhea Genitourinary: denies: urgency, dysuria, frequency, discharge, abnormal menses, dyspareunia Musculoskeletal: arthralgia, myalgia. denies: back pain, joint swelling Skin: denies: rash, lesions Neurological: headache (Frontal headache). denies: weakness, paresthesias Psychiatric: denies: anxiety, depression Hematological/Lymphatic: denies: easy bleeding, easy bruising ED Past Medical Hx - Past Medical History Hx Hypertension: No Hx Diabetes: No Hx Deep Vein Thrombosis: No Hx Renal Disease: No Hx Sickle Cell Disease: No Hx Seizures: No Hx Asthma: Yes (last attack 08/2019) - Surgical History Additional Surgical History: TONSILS - Social History Smoking Status: Never Smoker - Medications Home Medications: Home Medications Medication Instructions Recorded Confirmed Last Taken Type Colace CAP 1 tab PO DAILY 05/03/20 05/03/2020 History Iron 1 tab PO BID 05/03/20 05/03/20 05/01/20 History NIFEdipine [Procardia] 10 mg PO Q6H PRN #30 capsule 05/03/20 Unknown Rx Vitamin 1 tab PO DAILY 05/03/20 05/03/20 05/01/20 History Acetaminophen/Codeine [Tylenol 1 tab PO Q4HR PRN #12 tablet 10/25/20 Unknown Rx /Codeine # 3 tab] Clindamycin [Clindamycin CAP] 300 mg PO Q8H 10 Days #30 cap 10/25/20 Unknown Rx Ibuprofen [Motrin 600 MG tab] 600 mg PO Q8H PRN #30 tablet 10/25/20 Unknown Rx Azithromycin [Zithromax Z-JH] 250 mg PO DAILY #6 tablet 11/08/20 Unknown Rx Benzonatate [Tessalon Perles] 100 mg PO Q8HR #30 capsule 11/08/20 Unknown Rx Cetirizine HCl [Zyrtec 10mg tab] 10 mg PO DAILY #30 tablet 11/08/20 Unknown Rx Fluticasone [Flonase] 1 spray NS QDAY #1 bottle 11/08/20 Unknown Rx Ibuprofen [Motrin] 800 mg PO Q8HR PRN #30 tablet 11/08/20 Unknown Rx ED Physical Exam - General Limitations: No Limitations General appearance: alert, in no apparent distress - Head Head exam: Present: atraumatic, normocephalic, normal inspection - Eye Eye exam: Present: normal appearance, PERRL, EOMI Pupils: Present: normal accommodation - ENT ENT exam: Present: normal orophraynx, mucous membranes moist, TM's normal bilaterally, normal external ear exam, other (Grossly congested nasal passages; palpable severe frontal and maxillary sinus tenderness) - Neck Neck exam: Present: normal inspection, full ROM - Respiratory Respiratory exam: Present: normal lung sounds bilaterally. Absent: respiratory distress, wheezes, rales, rhonchi, chest wall tenderness, accessory muscle use, decreased breath sounds, prolonged expiratory - Cardiovascular Cardiovascular Exam: Present: normal rhythm, tachycardia, normal heart sounds. Absent: systolic murmur, diastolic murmur, rubs, gallop - GI/Abdominal GI/Abdominal exam: Present: soft, normal bowel sounds. Absent: tenderness, g uarding, rebound, hyperactive bowel sounds, hypoactive bowel sounds, organomegaly - Extremities Exam Extremities exam: Present: normal inspection, full ROM, normal capillary refill - Back Exam Back exam: Present: normal inspection, full ROM. Absent: tenderness, CVA tenderness (R), CVA tenderness (L), muscle spasm, paraspinal tenderness, vertebral tenderness - Neurological Exam Neurological exam: Present: alert, oriented X3, CN II-XII intact, normal gait, reflexes normal - Psychiatric Psychiatric exam: Present: normal affect, normal mood - Skin Skin exam: Present: warm, dry, intact, normal color. Absent: rash ED Course Vital Signs 11/07/20 11/08/20 23:02 01:09 Temperature 99.2 F Pulse Rate 110 H 90 Respiratory 18 Rate Blood Pressure 137/81 O2 Sat by Pulse 98 Oximetry ED Medical Decision Making - Medical Decision Making This is a 30-year-old -[place] female with no past medical history presents to the ED with complaint of acute onset persistent severe frontal sinus pressure and headache, nasal and sinus congestion and mild dry cough with diffuse body aches and pains for the last 12 hours. Patient states that her 5-month-old child has had similar symptoms. Patient states that she has not been able to eat anything because of lack of appetite and generalized fatigue. Patient states that the cough and the frontal sinus pressure have worsened in the last 8 hours. Patient states that despite taking [id number] medications for pain, the headache has been persistent and worsening. In the ED, patient is alert and oriented x3 and is not in any distress but appears to be anxious, afebrile and tachycardic in triage. Patient was treated for pain in the ED and on reevaluation, patient's pain is well controlled medication and tachycardia also resolved. Based on the history and physical exam findings, the patient symptoms are likely due to frontal and maxillary sinusitis and acute upper respiratory infection. Patient was therefore discharged home on pain medications and antibiotics and advised to follow-up with her primary care physician in 7 to 10 days for reevaluation or return to the ED immediately if symptoms get worse. - Differential Diagnosis Sinusitis; URI; bronchitis; pneumonia; rhinitis Critical care attestation.: If time is entered above; I have spent that time in minutes in the direct care of this critically ill patient, excluding procedure time. ED Disposition Clinical Impression: Acute upper respiratory infection Acute pansinusitis, unspecified Qualifiers: Recurrence: non-recurrent Qualified Code(s): J01.40 - Acute pansinusitis, unspecified Acute bronchitis Qualifiers: Bronchitis organism: other organism Qualified Code(s): J20.8 - Acute bronchitis due to other specified organisms Disposition: TO HOME OR SELFCARE Is pt being admited?: No Does the pt Need Aspirin: No Condition: Stable Instructions: Cough, Adult, [id number], Sinusitis, Adult, [id number], Acute Bronchitis, Adult, [id number], Upper Respiratory Infection, Adult, [id number], Acute Bronchitis (ED) Additional Instructions: Your symptoms are likely due to acute frontal and maxillary sinusitis versus acute upper respiratory infection causing bronchitis. Therefore take medications with food, drink plenty of fluids and follow-up with your primary care physician in 5 to 7 days for reevaluation. Return to the ED immediately if symptoms get worse. Prescriptions: Fluticasone [Flonase] 1 spray NS QDAY #1 bottle Ibuprofen [Motrin] 800 mg PO Q8HR PRN #30 tablet PRN Reason: Pain , Severe (7-10) Benzonatate [Tessalon Perles] 100 mg PO Q8HR #30 capsule Azithromycin [Zithromax Z-JH] 250 mg PO DAILY #6 tablet Cetirizine HCl [Zyrtec 10mg tab] 10 mg PO DAILY #30 tablet Referrals: [facility] [Provider Group] - 3-5 Days Forms: Work/School Release Form(ED) Time of Disposition: 00:57 Print Language: GREENLANDIC
--- NOTE | 2020-11-08 10:30 | Electrocardiograph Report ---
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
== END 2020-11-08 01:40 | disposition home or self-care (01) ==
LOC: ED 22:55
DX: J20.9 Acute bronchitis, unspecified (principal); J01.40 Acute pansinusitis, unspecified; J06.9 Acute upper respiratory infection, unspecified; J45.909 Unspecified asthma, uncomplicated; Z98.890 Other specified postprocedural states; Z79.899 Other long term (current) drug therapy; Z88.0 Allergy status to penicillin; Z88.1 Allergy status to other antibiotic agents
CPT/HCPCS: 93005; 99282; J7512; Q0162